=== PATIENT | female | born 1965 | race Caucasian/White ===

== ENCOUNTER 2016-06-21 20:34 | Emergency (ER) | payer OTHER ==
[2016-06-21] MEDS ORDERED: guaiFENesin/CODEINE 5 ML UDC PO STA (20:53)
[2016-06-21] MEDS ORDERED: ALBUTEROL NEB 2.5 MG/3 ML INH STA (20:53)
--- NOTE | 2016-06-21 20:58 | ED Physician Documentation ---
PD HPI URI - Stated complaint Stated Complaint: SOA/COUGH - Chief complaint Chief Complaint: Resp - History obtained from History obtained from: Patient - History of Present Illness Timing - onset: Today (Runny nose and mild sore throat and cough for a few days but severe cough since 3 p.m. today, nonproductive. She doesn't have any history of underlying heart or lung disease or asthma. Doesn't smoke. She tried xelo-usa-eyumwcd Robitussin-DM without any improvement. No recent travel or sick contacts. She started taking acyclovir for this, she says her oncologist told her that it might prevent colds. I discussed with her that it may prevent cold sores but doesn't work for the viruses that cause upper respiratory infections otherwise.) Review of Systems Constitutional: denies: Fever, Chills Ears: denies: Ear pain Nose: reports: Rhinorrhea / runny nose Throat: denies: Sore throat Respiratory: reports: Dyspnea, Cough GI: denies: Abdominal Pain PD PAST MEDICAL HISTORY - Present Medications Home Medications: Ambulatory Orders Medication Instructions Recorded Confirmed Albuterol Sulfate [Proventil Hfa 1 - 2 puffs IH Q4H PRN #1 06/21/16 Inhaler] hfa.aer.ad Benzonatate [Tessalon] 200 mg PO QID PRN #20 capsule 06/21/16 guaiFENesin/CODEINE [Robitussin AC] 5 - 10 ml PO Q6H PRN #120 ml 06/21/16 - Allergies Allergies/Adverse Reactions: Allergies Allergy/AdvReac Type Severity Reaction Status Date / Time No Known Drug Allergies Allergy Verified 06/21/16 20:41 PD ED PE NORMAL - Vitals Vital signs reviewed: Yes - General General: Alert and oriented X 3, Other (frequent dry cough) - HEENT HEENT: PERRL, EOMI - Neck Neck: Supple, no meningeal sign, No bony TTP - Cardiac Cardiac: RRR, No murmur - Respiratory Respiratory: No respiratory distress, Other (rhonchorous throughout) - Extremities Extremities: No edema, No calf tenderness / cord - Neuro Neuro: Alert and oriented X 3, Normal speech - Psych Psych: Normal mood, Normal affect Results - Vitals Vitals: Vital Signs - 24 hr 06/21/16 06/21/16 20:37 21:40 Temperature 37.1 C Heart Rate 93 75 Respiratory 24 18 Rate Blood Pressure 117/78 O2 Saturation 97 Oxygen O2 Source Room air - Rads (name of study) 2v chest Radiology: EMP read contemporaneously (normal) Departure - Departure Disposition: Home, Self Care Clinical Impression: Cough in adult Upper respiratory tract infection Qualifiers: URI type: unspecified viral URI Qualified Code(s): J06.9 - Acute upper respiratory infection, unspecified; B97.89 - Other viral agents as the cause of diseases classified elsewhere Condition: Good Record reviewed to determine appropriate education?: Yes Instructions: ED Bronchitis Asthmatic Prescriptions: Albuterol Sulfate [Proventil Hfa Inhaler] 1 - 2 puffs IH Q4H PRN #1 hfa.aer.ad PRN Reason: Cough guaiFENesin/CODEINE [Robitussin AC] 5 - 10 ml PO Q6H PRN #120 ml PRN Reason: Cough Benzonatate [Tessalon] 200 mg PO QID PRN #20 capsule PRN Reason: Cough Comments: Call your doctor to arrange a follow up appointment. Make the next available appointment. In the interim return anytime if worse or if new symptoms develop.
[2016-06-21] MEDS ORDERED: guaiFENesin/CODEINE 5 ML UDC ONE (21:01)
--- NOTE | 2016-06-21 21:24 | XRAY Preliminary Report ---
Exam: XR Chest 2 View PA/LAT IMPRESSION: Negative chest. [facility] SITE ID: [id number]
--- NOTE | 2016-06-21 21:26 | XRAY Report ---
EXAM: CHEST RADIOGRAPHY EXAM DATE: 06/21/2016 09:08 PM. CLINICAL HISTORY: Cough. COMPARISON: None. TECHNIQUE: 2 views. FINDINGS: Lungs/Pleura: No focal opacities evident. No pleural effusion. No pneumothorax. Normal volumes. Mediastinum: Heart and mediastinal contours are unremarkable. Other: None. IMPRESSION: Negative chest. [facility] Referring Provider Line: [phone] SITE ID: [id number]
[2016-06-21] MEDS ORDERED: ALBUTEROL NEB 2.5 MG/3 ML INH ONE (21:33)
[2016-06-21] MEDS ORDERED: BENZONATATE 100 MG CAPSULE PO STA (22:00)
[2016-06-21] MEDS ORDERED: BENZONATATE 100 MG CAPSULE PO ONE (22:02)
[2016-06-21 22:06] VITALS: BP 123/77
== END 2016-06-21 22:06 | disposition home or self-care (01) ==
LOC: ED 20:34
DX: J06.9 Acute upper respiratory infection, unspecified (principal); B97.89 Other viral agents as the cause of diseases classified elsewhere
CPT/HCPCS: 71020; 99283; A9270; J7613

== ENCOUNTER 2017-04-22 10:10 | Outpatient (CLI) | payer OTHER ==
--- NOTE | 2017-05-05 15:47 | Mammography Report ---
DIGITAL SCREENING MAMMOGRAM: 04/22/2017 CLINICAL INDICATION: A 51-year-old nulliparous patient, for screening. COMPARISON: Films from [place], [place] dated 04/01/2011. TECHNIQUE: Routine CC and MLO projections were obtained of the breasts. FINDINGS: The breasts again demonstrate heterogeneously dense fibroglandular parenchyma bilaterally. A few punctate, typically benign calcifications are present. No suspicious masses, clustered microcalcifications, or regions of architectural distortion are identified. IMPRESSION: BENIGN FINDINGS. RECOMMENDATION: ROUTINE ANNUAL SCREENING UNLESS OTHERWISE CLINICALLY INDICATED. BIRADS CATEGORY 2-BENIGN FINDINGS. STANDARD QUALIFYING STATEMENTS: 1. This examination was reviewed with the aid of Computer-Aided Detection (CAD). 2. A negative or benign imaging report should not delay biopsy if clinically suspicious findings are present. Consider surgical consultation if warranted. More than 5% of cancers are not identified by imaging. 3. Dense breasts may obscure an underlying neoplasm. TD: 05/05/2017 15:46
== END 2017-04-22 10:11 | disposition home or self-care (01) ==
LOC: DI.N 10:10
PROVIDERS: ATTEND Internal Medicine
DX: Z12.31 Encounter for screening mammogram for malignant neoplasm of breast (principal)
CPT/HCPCS: 77067

== ENCOUNTER 2017-05-21 09:51 | Outpatient (CLI) | payer OTHER ==
[2017-05-21 13:13] LABS: HB2 TOTAL 16.1 g/dL; HEMOGLOBIN A1C 0.8 g/dL; HEMOGLOBIN A1C % 6.7 % (4.6-6.2)
== END 2017-05-21 09:52 | disposition home or self-care (01) ==
LOC: LAB.WCP 09:51
PROVIDERS: ATTEND Family Medicine
DX: R73.01 Impaired fasting glucose (principal)
CPT/HCPCS: 36415; 82947; 83036

== ENCOUNTER 2017-10-04 13:57 | Outpatient (CLI) | payer OTHER ==
[2017-10-04 17:42] LABS: BASOPHILS % (AUTO) 0.5 %; EOSINOPHILS # (AUTO) 0.1 10^3/uL (0.0-0.7); EOSINOPHILS % (AUTO) 1.7 %; HGB - HEMOGLOBIN 14.2 g/dL (12.0-16.0); LYMPHOCYTES # (AUTO) 1.7 10^3/uL (1.5-3.5); LYMPHOCYTES % (AUTO) 33.9 %; MEAN CORPUSCULAR HEMOGLOBIN 31.1 pg (27.0-31.0); MEAN CORPUSCULAR HGB CONC 33.6 g/dL (32.0-36.0); MEAN CORPUSCULAR VOLUME 92.5 fL (81.0-99.0); MEAN PLATELET VOLUME 6.8 fL (7.9-10.8); MONOCYTES # (AUTO) 0.3 10^3/uL (0.0-1.0); MONOCYTES % (AUTO) 5.8 %; NEUTROPHILS # (AUTO) 2.8 10^3/uL (1.5-6.6); NEUTROPHILS % (AUTO) 58.1 %; PLT - PLATELET COUNT 302 10^3/uL (130-450); RED BLOOD COUNT 4.57 10^6/uL (4.20-5.40); RED CELL DISTRIBUTION WIDTH 13.7 % (12.0-15.0); WHITE BLOOD COUNT 4.9 x10^3/uL (4.8-10.8)
[2017-10-04 18:38] LABS: ALBUMIN 4.3 g/dL (3.2-5.5); ALBUMIN/GLOBULIN RATIO 1.2 (1.0-2.2); ALKALINE PHOSPHATASE 58 IU/L (42-121); ALT ALANINE AMINOTRANSFERASE 37 IU/L (10-60); AST ASPARTATE AMINOTRANSFERASE 20 IU/L (10-42); BILIRUBIN,TOTAL 0.5 mg/dL (0.2-1.0); BUN - BLOOD UREA NITROGEN 16 mg/dL (6-20); CALCIUM 9.3 mg/dL (8.5-10.3); CARBON DIOXIDE - CO2 27 mmol/L (21-32); CHLORIDE 102 mmol/L (101-111); CHOL/HDL RATIO 2.4 (<4.4); CHOLESTEROL 190 mg/dL; CREATININE 0.8 mg/dL (0.4-1.0); GFR - MDRD 76 (>89); GLUCOSE 165 mg/dL (70-100); HDL CHOLESTEROL 79 mg/dL; LDL CHOLESTEROL,CALCULATED 78 mg/dL; SODIUM 139 mmol/L (135-145); TOTAL PROTEIN 7.8 g/dL (6.7-8.2); VLDL CHOLESTEROL 33 mg/dL
[2017-10-04 19:26] LABS: HB2 TOTAL 15.1 g/dL; HEMOGLOBIN A1C 0.65 g/dL; HEMOGLOBIN A1C % 6.1 % (4.6-6.2)
== END 2017-10-04 13:58 | disposition home or self-care (01) ==
LOC: LAB.S 13:57
PROVIDERS: ATTEND Family Medicine
DX: Z00.00 Encounter for general adult medical examination without abnormal findings (principal); E11.9 Type 2 diabetes mellitus without complications
CPT/HCPCS: 36415; 80053; 80061; 82043; 83036; 83721; 84443; 85025

== ENCOUNTER 2018-09-29 11:44 | Outpatient (CLI) | payer OTHER ==
--- NOTE | 2018-09-30 13:00 | XRAY Report ---
Reason: RIGHT SIDED RIB PAIN Procedure Date: 09/29/2018 Accession Number: [id number] / [id number] Procedure: WCP - Ribs w/PA Chest RT CPT Code: FULL RESULT: EXAM: RIGHT RIB RADIOGRAPHY EXAM DATE: 09/29/2018 11:44 AM. CLINICAL HISTORY: Right rib cage pain status post trauma during a fall on 09/17/2018. COMPARISON: CHEST 2 VIEW PA/LAT 06/21/2016 8:55 PM. TECHNIQUE: 1 view of the chest and 2 views of the right ribs. FINDINGS: Bones: There is an acute closed nondisplaced transverse fracture of the anterior aspect of the right eighth rib. No other fracture. Normal bone mineralization. No focal bone lesion. No congenital rib anomaly. Lungs: No focal opacities. No pneumothorax. No pleural effusions. Mediastinum: Heart and mediastinal contours are unremarkable. Other: None. IMPRESSION: 1. Acute closed nondisplaced transverse fracture of the anterior right eighth rib. 2. No pneumothorax or pleural effusion. 3. The remainder of the chest and right rib radiography is unremarkable. [facility]
== END 2018-09-29 23:59 | disposition home or self-care (01) ==
LOC: DI.WCP 11:44 → EDSTATUS 13:16 → DI.WCP 23:59
PROVIDERS: ATTEND Family Medicine
DX: S22.31XA Fracture of one rib, right side, initial encounter for closed fracture (principal)

== ENCOUNTER 2023-01-07 08:33 | Outpatient (CLI) | payer OTHER ==
--- NOTE | 2023-01-07 09:52 | Sleep Patient Instructions ---
Sleep Center Visit Summary - Patient Visit Information Reason for Visit: Initial consultation - Patient Instructions Additional Instructions: You will continue with CPAP therapy with pressure set at 8-16 cmH2O. We encourage you to continue to try to lose weight. Please follow up with the sleep care office in 1 year. - Clinic Information Contact: [facility] [address] [place] [address] [email or web address] T: [phone]
--- NOTE | 2023-01-07 10:01 | SLEEP CARE CONSULTATION ---
Information from patient questionnaire entered by Estefania Rivera. I have reviewed and concur with the information entered by Estefania Rivera. This document represents the service I personally performed and the decisions made by me, Cee Tenorio ARNP. History of Present Illness Service Date and Time: 01/07/2023 0833 Reason for Visit: New patient, Previously diagnosed sleep apnea, sleep apnea on CPAP therapy Chief Complaint: reports: Insomnia, Unrefreshed sleep, Snoring, Excessive daytime sleepiness, Observed pauses in breathing, Fatigue, Frequent awakenings at night Date of Onset: 2019 Usual bedtime: 10:00 Time it takes to fall asleep: ? Snores at night: Yes Observed to quit breathing while asleep: Yes Sleeps alone due to snoring: No Number of times waking at night: 5-10 Reasons for waking at night: reports: Bathroom, Other (Dry throat, inability to swallow) Toss, Turn, or Twitch while sleeping: No Recalls having dreams: No (Not often) Usually gets out of bed at: 6:30 Feels refreshed in the morning: No Morning headache: No (I used to and it would resolve after about an hour) Sleepy or fatigued during the day: Yes Ever fallen asleep while driving: Yes Takes day naps: No Dreams during day naps: No Prior sleep studies: Yes Year and Where: 2019 [facility] Type of Sleep Study: Polysomnography Additional HPI information: YURI YAP was previously diagnosed to have extremely severe, AHI 115.3, obstructive sleep apnea-hypopnea syndrome at [facility] as seen in sleep study dated 07/06/2019 and comes in today to establish care for CPAP therapy. - Parasomnia Symptoms Ever been unable to move upon waking from sleep: Yes (Maybe) Walks in sleep: No (Not that I know of) Talks in sleep: Yes Ever acted out dreams in sleep: No (?) Ever felt weak in the knees when startled or emotional: No Bothered by creepy, crawly, restless sensations in legs: No Problems with memory or concentration: Yes CPAP Compliance Data - Data Reviewed with Patient Average duration of nightly device use: 7 h 31 min Compliance rate %: 98 (177/180 day used) Current pressure setting (cmH2O): 8-16 Average residual AHI: 2.0 Central apnea: 1 Obstructive apnea: 0.5 Average large leak: 1.9 L/min Compliance data discussion: She has a ResMed Airsense 11. She buys all her supplies out of pocket because her insurance does not cover them. She is using a nasal cushion, ResMed N30i, small cushion and frame. She has backup masks if needed. Subjective Patient concerns: reports: dry mouth, nose, throat (uses Somnifix tapes). denies: aerophagia, mask discomfort, air blowing in eyes, mask leak noise, condensation in mask/hose, nasal congestion, epistaxis Observed to snore while using device: No Current pressure setting perceived as: comfortable On therapy, patient: reports: sleeping better, more rested overall. 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 Patient is and lives in [place]. Have you smoked in the past 12 months: No Alcohol use: Yes Alcohol amount and frequency: 1-2, 3 days/week Caffeine use: Yes Caffeine amount and frequency: 2 cups daily Family History Family history of sleep disordered breathing: No Allergies and Home Medications Known drug allergies: No Drug allergies reviewed: Yes Home medication list reviewed: Yes Allergy and home medication list: Allergies No Known Drug Allergies Allergy (Verified 01/06/23 09:16) Medications: Metformin, not remembering to take Gabapentin for sleep OTC Nyquil for cold recently Review of Systems Weight gain over past 5 years: 20 Cardiovascular: denies: high blood pressure Respiratory: reports: sputum production, other (Nasal congestion or obstruction) Gastrointestinal: denies: heartburn Neurological: denies: headaches Psychiatric: denies: anxiety, depression Ear/Nose/Throat: reports: nasal congestion, sinus problems, dry mouth/throat. denies: tonsillectomy Musculoskeletal: reports: joint pain (/stiffness), neck pain, back pain Physical Exam Vital signs obtained and entered by: Cee Escudero NP Blood Pressure: 120/70 Cuff size: regular (left arm) Heart Rate: 71 O2 Saturation: 96 Height: 5 ft 5.5 in Weight: 208 lb Body Mass Index: 34.0 BMI Classification: Obese Neck circumference: 15 (inches) Mouth and throat: narrow oropharynx Soft palate: long Hard palate: normal Uvula: long, edematous Uvula visualization: 50% Mallampati Class II Tongue: enlarged in size with teeth snell on lateral edges Tonsils: small Neck: normal w/o lymphadenopathy or thyromegaly Heart: regular rate and rhythm Lungs: clear bilaterally Impression and Plan 1. Obstructive Sleep Apnea-Hypopnea Syndrome, extremely severe, with good treatment compliance and good apnea control. On CPAP therapy, the patient has better sleep quality and is more rested overall. Patient has significant improvement of their sleep apnea and is satisfied with current CPAP therapy. Patient states she does use sleep straps on her mouth to keep her lips together but occasionally they will come open and she gets very dry mouth and throat. She has seen an ENT specialist because of her constant nasal congestion and was told that she does have a problem with one side of her left nasal passage collapsing and could be stented. She does have the humidifier as high as it can go before it makes condensation and he is using a heated hose. She does have problems with being able to breathe through her nose and has to lay in certain positions to make sure she can breathe comfortably. It may be that she becomes blocked on one side of her nose causing her to oral vent and thus dryness. I encouraged her to return to her nuclear design engineer to seek further evaluation and treatment. She voiced understanding. Patient's apnea severity and rationale for treatment to reduce apnea, improve sleep quality and reduce cardiovascular and cerebrovascular events was reviewed. I also reviewed the benefit of consistent device use of CPAP for diabetes. 2. Obesity, unspecified. Currently patients BMI is 34. Obesity increases the risk of apnea, CPAP pressure requirements and overall health risks especially cardiovascular and diabetes. Thus patient is advised to lose weight. * Continue auto CPAP pressure at 8-16 cmH2O * Notify me if snoring with mask or feeling that the pressure is too much or too little * Attempt to lose weight * Call this office if any problems using CPAP * Return for follow up in 12 months, or sooner if concerns arise Counseling Topics: Spare mask, Weight loss health impact Prescriptions: Device supplies Follow up with Sleep Care in: 1 year Visit Type: In Office Time Spent with Patient (minutes): 44 Provider Statement: I spent 100% of the Face to Face Visit with the patient with greater than 50% spent counseling the patient and coordination of care.
[2023-01-07 10:09] VITALS: BP 120/70; O2SAT 96
== END 2023-01-07 08:34 | disposition home or self-care (01) ==
LOC: SC 08:33
PROVIDERS: ATTEND Nurse Practitioner Family
DX: G47.33 Obstructive sleep apnea (adult) (pediatric) (principal); E66.9 Obesity, unspecified; Z68.34 Body mass index [BMI] 34.0-34.9, adult
CPT/HCPCS: 99203; 99212

== ENCOUNTER 2023-07-08 08:48 | Outpatient (CLI) | payer OTHER ==
[2023-07-08 13:20] LABS: RHEUMATOID FACTOR NEGATIVE (Negative)
[2023-07-08 13:27] LABS: CREATININE,URINE 32.9 mg/dL
[2023-07-08 13:47] LABS: MICROALBUMIN,URINE < 0.7 mg/dL
== END 2023-07-08 08:49 | disposition home or self-care (01) ==
LOC: LAB.N 08:48
PROVIDERS: ATTEND Internal Medicine
DX: H20.9 Unspecified iridocyclitis (principal); L65.9 Nonscarring hair loss, unspecified; E11.9 Type 2 diabetes mellitus without complications
CPT/HCPCS: 36415; 81374; 82043; 82570; 82626; 84270; 84402; 84403; 85651; 86038; 86140; 86200; 86430

== ENCOUNTER 2023-09-25 20:16 | Emergency (ER) | payer OTHER ==
--- NOTE | 2023-09-25 20:58 | ED Physician Documentation ---
History of Present Illness - Stated complaint Stated Complaint: LT WRIST INJ - Chief complaint Chief Complaint: Trauma Ext - History obtained from History obtained from: Patient - Additonal information Additional information: Patient is a 58-year-old female presenting to the emergency department after falling on outstretched hand while walking by [place] today. She notes she did not fall hard she put her left hand out to catch herself and block her fall. She denies hitting her head or losing consciousness. Patient has history of type 2 diabetes but no other past medical history. Patient did not take anything for pain prior to coming to the emergency department. Patient notes she is right-handed. 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 Musculoskeletal: Osteoarthritis Other Past Medical History: meniscal tear - Past Surgical History Past Surgical History: Yes /COMPUTER HARDWARE ENGINEER: Hysterectomy - Present Medications Home Medications: Ambulatory Orders Medication Instructions Recorded Confirmed HYDROcod/ACETAM 5/325 [[place] 5/325] 1 - 2 tab PO Q6H PRN #15 tablet 09/25/23 - Allergies Allergies/Adverse Reactions: Allergies Allergy/AdvReac Type Severity Reaction Status Date / Time No Known Drug Allergies Allergy Verified 09/25/23 20:31 - Social History Does the pt smoke?: No Smoking Status: Never smoker Does the pt drink ETOH?: Yes Does the pt have substance abuse?: No - Immunizations Immunizations are current?: Yes - POLST Patient has POLST: No PD ED PE NORMAL - Vitals Vital signs reviewed: Yes - General General: Alert and oriented X 3 - HEENT HEENT: Atraumatic - Neck Neck: Supple, no meningeal sign - Cardiac Cardiac: RRR, No gallop - Respiratory Respiratory: No respiratory distress - Female Female : Deferred - Extremities Extremities: Other (Significant tenderness to left wrist) - Neuro Neuro: Alert and oriented X 3 - Free text exam Free text exam: Left wrist shows mild deformity and swelling to left wrist. Decreased ROM with minimal flexion and extension, abduction or adduction on exam. Digits 1-5 sensation intact with good capillary refill. Radial pulse 2+. Full ROM of digits 1-5 intact. No elbow pain and full ROM of left. Results - Vitals Vitals: Vital Signs - 24 hr 09/25/23 09/25/23 20:26 20:34 Temperature 37.3 C Heart Rate 58 L 58 L Respiratory 19 Rate Blood Pressure 158/94 H O2 Saturation 98 Oxygen O2 Source Room air PD Medical Decision Making - ED course Complexity details: reviewed old records ED course: Patient is a 58-year-old female presenting to the emergency department with left wrist injury after a fall on outstretched hand tonight. Patient is right- handed. She notes no numbness or tingling to her extremities but notes persistent pain to her left wrist. She has decreased range of movement due to significant pain moderate swelling and mild deformity noted on examination. X- rays obtained here in the emergency department of left wrist does show signs of acute fracture with comminuted radius and intra-articular extension. Readings are same moderately displaced additionally ulnar styloid fracture with moderate displacement as well. Reviewed imaging with Dr. Kingston attending and agreeable no reduction necessary at this time as fracture appears well and aligned at this time. Discussed with patient sugar-tong splint was placed she remains neurovascularly intact after sugar-tong was placed. Patient given pain medications here and sent home with prescription to take pain medication for symptom control. What I was called back into the room as patient was having some pain to her left pinky but has full sensation full range of motion and no complications with splint here in emergency department. Discussed with patient would offer resplinting here but she feels safe to go home and see if symptoms resolve at night. Patient agreeable with this plan. Reviewed imaging and no signs of fracture to fifth digit. Patient will follow-up with orthopedics and she is given the phone number to call and make an appointment with their office. Patient instructed to return with any redness swelling warmth numbness tingling decrease sensation or any other new or worsening symptoms. Departure - Departure Disposition: 01 Home, Self Care Clinical Impression: Left radial fracture, Displaced fracture of left ulna styloid process, initial encounter for closed fracture, Injury of lower arm Condition: Good Follow-Up: Devon Garcia MD [Provider Admit Priv/Credential] - Prescriptions: HYDROcod/ACETAM 5/325 [[place] 5/325] 1 - 2 tab PO Q6H PRN #15 tablet PRN Reason: Pain Comments: You were seen here in the emergency department for your fracture of your left wrist your workup here in the emergency department showed comminuted fracture I have provided you with pictures of the fracture. You need to follow-up with orthopedics in the outpatient setting I have given you the number. Watch for any numbness tingling in your digits any changes in color decreased sensation or severe pain to your left wrist. Return to the emergency department for the symptoms. You can take 800 mg of ibuprofen every 8 hours for your symptoms and you can take up to 1000 mg of Tylenol every 8 hours to help with pain control. I have sent more pain medications to your pharmacy to help with pain. Forms: PCP List
--- NOTE | 2023-09-25 21:20 | XRAY Report ---
PROCEDURE: Wrist 3+V LT INDICATIONS: FOOSH obv defomity TECHNIQUE: 4 views of the wrist were acquired. COMPARISON: None. FINDINGS: Bones: There is a moderately displaced transverse distal radius fracture, comminution. Intra-articul ar involvement can be seen. There is a moderately displaced ulnar sided fracture. The radiocarpal dislocation can be seen. No bony dislocation is seen. Age-appropriate degenerative changes are seen. Soft tissues: Soft tissue swelling is seen. IMPRESSION: Comminuted distal radius fracture, with intra-articular involvement. There is an associated ulnar styloid fracture also seen. Reviewed by: Scott Parekh MD on 09/25/2023 8:18 PM [facility] Approved by: Scott Parekh MD on 09/25/2023 8:18 PM [facility] Station ID: [id number]
[2023-09-25] MEDS: HYDROcod/ACETAM 10 MG/325 MG TABLET PO PRN (22:01)
[2023-09-25 22:29] VITALS: BP 152/86; O2SAT 99
== END 2023-09-25 22:28 | disposition home or self-care (01) ==
LOC: ED 20:16
DX: S52.572A Other intraarticular fracture of lower end of left radius, initial encounter for closed fracture (principal); W01.198A Fall on same level from slipping, tripping and stumbling with subsequent striking against other object, initial encounter; Y93.01 Activity, walking, marching and hiking; Y92.832 Beach as the place of occurrence of the external cause
CPT/HCPCS: 29125; 73110; 99283; 99284; A9270